=== PATIENT | female | born 1990 | race Caucasian/White ===

== ENCOUNTER 2017-06-30 19:00 | Observation (INO) | END 2017-06-30 20:15 | disposition left against medical advice (07) ==

== ENCOUNTER 2017-07-26 01:36 | Outpatient (CLI) | END 2017-07-26 05:15 | disposition home or self-care (01) ==

== ENCOUNTER 2017-08-07 05:33 | Inpatient (IN) | END 2017-08-10 20:05 | disposition home or self-care (01) | DRG 766 ==